=== PATIENT | male | born 1940 | race Caucasian/White ===

== ENCOUNTER 2017-04-27 14:26 | Emergency (ER) | payer MEDICARE, OTHER ==
[~2017-04-27] VITALS: Ht 175.3 cm; Wt 79.4 kg
--- NOTE | ~2017-04-27 | CR142 ---
[facility] A Service of [facility] & [facility] RADIOLOGY TEXT RESULTS PATIENT: MILDRED RUIZ LOCATION: [facility] : 40 UNIT #: [id number] AGE: [address]: Nathalie Caba APRN SEX: M ORDER DR: [id number] [facility] [address] [place], [place] [address] [id number] E MR#: [id number] Acc #: [id number] NAME: MILDRED RUIZ : 1940 SEX: M STUDY DATE/TIME: 04/27/2017 16:02 UNIT: [facility] ROOM: STUDY DESCRIPTION: CR Hand Min 3 Views Rt Attending Physician: Nathalie Caba A.P.R.N. Ordering Physician: Nathalie Caba A.P.R.N. Primary Care Physician: Zaid Moscoso M.D. MEDICAL IMAGING REPORT This report is preliminary unless electronic signature is present EXAM Right hand, 3 views COMPARISON Views right wrist on the same date. A 77-year-old male with right hand pain, swelling and bruising after smashing hand with the shovel handle yesterday. FINDINGS Chronic deformity of the first metacarpal is noted. There is mild osteophyte formation at the first metacarpal phalangeal joint. Chronic ossicle was also seen at this joint. There is apparent widening of the scapholunate interval measuring up to approximately 4 mm, which measured to be up to approximately 3 mm on comparison radiographs of the wrist on the same date. Findings are suggestive of prior ligamentous injury. Bones are anatomically aligned. No evidence of acute fracture. There is degenerative change at the second distal interphalangeal joint. IMPRESSION 1. No acute fracture or dislocation of the right hand. 2. Widened scapholunate interval approximately 4 mm suggestive of prior ligamentous injury. Comparison radiographs of the wrist on the same date give an interval of 3 mm which is at upper limits of normal. Clinical correlation is recommended. If concern for scapholunate dissociation, MRI can be performed for definitive evaluation as an outpatient. 3. 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 Dictated by... Lj Barbour M.D. [facility] A Service of [facility] RADIOLOGY TEXT RESULTS PATIENT: MILDRED RUIZ LOCATION: [facility] : 40 UNIT #: [id number] AGE: [address]: Nathalie Caba APRN SEX: M ORDER DR: THIS IS AN ELECTRONICALLY VERIFIED REPORT Lj Barbour M.D. at 05/02/2017 8:04 AM EUGENE/liliana TD: 04/27/2017 22:18 JOB #: [id number] MEDICAL IMAGING REPORT Page 1 of 1 COPY
--- NOTE | ~2017-04-27 | CR282 ---
[facility] A Service of [facility] & [facility] RADIOLOGY TEXT RESULTS PATIENT: MILDRED RUIZ LOCATION: [place] : 40 UNIT #: [id number] AGE: [address]: Nathalie Caba APRN SEX: M ORDER DR: [id number] [facility] [address] [place], [place] [address] [id number] E MR#: [id number] Acc #: [id number] NAME: MILDRED RUIZ : 1940 SEX: M STUDY DATE/TIME: 04/27/2017 16:03 UNIT: [facility] ROOM: STUDY DESCRIPTION: CR Wrist Min 3 View Rt Attending Physician: Nathalie Caba A.P.R.N. Ordering Physician: Nathalie Caba A.P.R.N. Primary Care Physician: Zaid Moscoso M.D. MEDICAL IMAGING REPORT This report is preliminary unless electronic signature is present EXAM Right wrist, 3 views. COMPARISON Three views of the right hand on the same date. INDICATIONS 77-year-old male with right wrist pain, swelling and bruising after smashing the wrist with a shovel handle yesterday. FINDINGS There is chronic deformity of the distal first metacarpal, perhaps due to remote fracture. Chronic ossicles are seen near the first metacarpal phalangeal joint. There is also mild osteophyte formation at this joint. Bones are anatomically aligned. No evidence of acute fracture. The scapholunate interval measures up to 3 mm, at upper limits of normal. Prior ligamentous injury cannot entirely be excluded. IMPRESSION 1. No evidence of acute fracture or dislocation of the wrist. The scapholunate interval is at upper limits of normal at 3 mm. This is a nonspecific finding. It may be normal for this patient but prior ligamentous injury cannot be excluded. 2. Healed deformity of the first metacarpal with degenerative changes at the first metacarpal phalangeal joint. Dictated by... Lj Barbour M.D. THIS IS AN ELECTRONICALLY VERIFIED REPORT Lj Barbour M.D. at 05/02/2017 7:58 AM EUGENE/brian [facility]. [facility] A Service of [facility] & [facility] RADIOLOGY TEXT RESULTS PATIENT: MILDRED RUIZ LOCATION: [facility] : 40 UNIT #: [id number] AGE: [address]: Nathalie Caba APRN SEX: M ORDER DR: TD: 04/27/2017 22:26 JOB #: [id number] MEDICAL IMAGING REPORT Page 1 of 1 COPY
[~2017-04-27 14:26] MED LIST: ASPIRIN81 M2 PO; MULTIVITAMIN1 UDCAP PO; ZESTRIL10 M1 PO
== END 2017-04-27 17:20 | disposition home or self-care (01) ==
LOC: CFTX 14:26 → CED 14:26 → CFTX 16:34
DX: S60.221A Contusion of right hand, initial encounter (principal); I10 Essential (primary) hypertension; Z88.5 Allergy status to narcotic agent; Z79.01 Long term (current) use of anticoagulants; E78.00 Pure hypercholesterolemia, unspecified; X58.XXXA Exposure to other specified factors, initial encounter; Y92.009 Unspecified place in unspecified non-institutional (private) residence as the place of occurrence of the external cause
CPT/HCPCS: 29280; 73110; 73130; 99283

== ENCOUNTER → 2017-05-27 | Outpatient (CLI) | payer MEDICARE, OTHER ==
--- NOTE | ~2017-05-27 | CT57 ---
[facility] A Service of [facility] & [facility] RADIOLOGY TEXT RESULTS PATIENT: MILDRED RUIZ LOCATION: [facility] : 40 UNIT #: [id number] AGE: [address]: Zaid Moscoso MD SEX: M ORDER DR: [id number] [facility] [address] [place], [place] [address] [id number] O MR#: [id number] Acc #: [id number] NAME: MILDRED RUIZ : 1940 SEX: M STUDY DATE/TIME: 05/27/2017 11:09 [facility] ROOM: STUDY DESCRIPTION: CT Chest Wo Cont Attending Physician: Zaid Moscoso M.D. Referring Physician: Zaid Moscoso M.D. Ordering Physician: Zaid Moscoso M.D. Primary Care Physician: Zaid Moscoso M.D. MEDICAL IMAGING REPORT This report is preliminary unless electronic signature is present EXAM CT chest without contrast. DATE 03/27/2017 HISTORY 77-year-old male presents for 6-month followup of lung nodule. 61-year smoking history. COMPARISON CT chest 11/06/2016, 03/14/2016, 09/21/2015. PROCEDURE 2 mm axial images through the chest without contrast. Sagittal and coronal reformatted images were obtained. This CT exam was performed with one or more of the following radiation dose reduction techniques: automatic exposure control, adjustment of mA and/or kV according to patient size, and iterative reconstruction. FINDINGS Cystic loculated 3.8 cm lesion is demonstrated within the right upper lobe, similar in size compared to the 09/21/2015 exam. It has an eccentric 5 mm nodular component along its anterior margin, which is slightly increased from 3 mm on the 03/14/2016 examination. This may simply be due to differences in slice selection but interval nodular development cannot be completely excluded. There is a noncalcified irregular nodule in the medial right upper lobe measuring 6 mm, which is thought to be a new finding since the 11/11/2014 exam. A small loculated cystic component in the left upper lobe near the apex measuring 2.2 cm is unchanged. [facility] A Service of [facility] & [facility] RADIOLOGY TEXT RESULTS PATIENT: MILDRED RUIZ LOCATION: [facility] : 40 UNIT #: [id number] AGE: [address]: Zaid Moscoso MD SEX: M ORDER DR: Loculated cystic appearing 3.3 cm lesion superior segment left lower lobe abutting the posterior pleural margin and the fissure margin with intervening interstitial thickening, appears unchanged from 09/21/2015. 5 mm pleural-based nodule within the lingular segment of the left upper lobe (image 96) is unchanged from 09/21/2015. 3 mm noncalcified nodule within the right upper lobe anteriorly (series 4, image 47) is unchanged from 09/21/2015. No pathologically enlarged lymph nodes are identified. Calcified lymph node seen in the prevascular region of the mediastinum. Dense coronary calcifications are present. No pericardial effusion or pleural effusion. Benign calcified granulomatous changes in the left hilum and left lower lobe. There is a left renal cyst measuring 2.0 cm. Remainder of the included upper abdominal organs appear within normal limits. IMPRESSION 1. An approximately 5 mm noncalcified nodular density is seen within the right upper lobe intimately associated with peripheral margin of the multiloculated-cystic lesion. Nodular density in the same vicinity on the previous 03/14/2006 examination measured only 3 mm. This nodular increase may simply be due to differences in slice selection, but interval growth cannot be excluded. Continued CT chest followup in 6 months recommended. 2. 6 mm irregular nodule in the medial right upper lobe has developed since the 09/21/2015 examination. It is too small to resolve with PET technique and is too small for percutaneous biopsy. Continued attention at CT chest surveillance imaging would be recommended. 3. Other areas of multiloculated cystic change in the superior segment of the left lower lobe and within the left lung apex are stable. 4. 6 mm lingular segment left upper lobe lung nodule and a 3 mm right upper lobe noncalcified nodule are each unchanged from 09/21/2015. Continued surveillance through September 2017 would be recommended to document 2 years of stability and benignity. 5. Dense coronary artery calcifications. Please correlate with cardiac history. 6. Benign calcified granulomatous changes in the chest. Dictated by... Faith Orellana M.D. THIS IS AN ELECTRONICALLY VERIFIED REPORT Faith Orellana M.D. at 05/28/2017 8:56 AM [facility] A Service of [facility] & [facility] RADIOLOGY TEXT RESULTS PATIENT: MILDRED RUIZ LOCATION: [facility] : 40 UNIT #: [id number] AGE: [address]: Zaid Moscoso MD SEX: M ORDER DR: KAREN/colten TD: 05/27/2017 16:15 JOB #: [id number] MEDICAL IMAGING REPORT Page 1 of 1 COPY
== END | disposition home or self-care (01) ==
LOC: CCAT 10:04
DX: R91.1 Solitary pulmonary nodule (principal); R91.8 Other nonspecific abnormal finding of lung field; I25.10 Atherosclerotic heart disease of native coronary artery without angina pectoris
CPT/HCPCS: 71250